=== PATIENT | male | born 1935 | race African-American/Black ===

== ENCOUNTER 2017-08-26 13:09 | Emergency (ER) | payer MEDICARE ==
[~2017-08-26] VITALS: Ht 177.8 cm; Wt 98.0 kg
[2017-08-26] MEDS ORDERED: CLONIDINE 0.2MG TABLET PO ONE (16:00)
[2017-08-26 16:40] LABS: BASOPHILS % 0.1 % (0.0-2.0); CHLORIDE 110 mEq/L (98-107); HEMATOCRIT. 31.3 % (42.0-52.0); HEMOGLOBIN. 10.8 g/dL (14.0-18.0); LYMPHOCYTES % 42.9 % (20.0-50.0); MEAN CORPUSCULAR HEMOGLOBIN 31.3 pg (28.0-32.0); MEAN CORPUSCULAR VOLUME 90.7 fL (80.0-94.0); MEAN PLATELET VOLUME 7.7 fl (7.4-10.4); MONOCYTES % 8.1 % (2.0-8.0); NEUTROPHILS % 41.9 % (40.0-76.0); PLATELET 124 x1000/uL (130-400); PROTHROMBIN TIME 10.6 sec (9.4-11.6); RED BLOOD CELL COUNT 3.45 mill/uL (4.7-6.1); RED CELL DISTRIBUTION WIDTH 14.1 % (11.6-14.6)
[2017-08-26 17:22] LABS: CLARITY URINE CLOUDY (CLEAR); COLOR URINE ORANGE (YELLOW); KETONES URINE NEGATIVE (NEGATIVE); LEUKOCYTE ESTERASE URINE TRACE (NEGATIVE); NITRITE URINE NEGATIVE (NEGATIVE); OCCULT BLOOD URINE 3+ (NEGATIVE); PROTEIN URINE 1+ (NEGATIVE); SPECIFIC GRAVITY URINE 1.012 (1.005-1.030); UROBILINOGEN URINE 0.2 E.U./dL (0.2-1.0)
[2017-08-26] MEDS ORDERED: LEVOFLOXACIN 500MG TABLET PO ONE (19:15)
[2017-08-26 19:23] VITALS: BP 145/77
== END 2017-08-26 19:29 | disposition home or self-care (01) ==
LOC: ER 14:22
DX: R31.9 Hematuria, unspecified (principal); C79.51 Secondary malignant neoplasm of bone; I10 Essential (primary) hypertension; E11.9 Type 2 diabetes mellitus without complications; Z85.46 Personal history of malignant neoplasm of prostate
CPT/HCPCS: 36415; 74176; 80053; 81003; 85025; 85610; 86850; 86900; 87086; 99285

== ENCOUNTER 2018-02-25 08:11 | Emergency (ER) | payer MEDICARE, MEDICAID ==
[~2018-02-25] VITALS: Ht 177.8 cm; Wt 99.0 kg
[2018-02-25] MEDS ORDERED: KETOROLAC 30MG/ML VIAL IV STA (09:28)
[2018-02-25 10:29] LABS: BASOPHILS % 0.2 % (0.0-2.0); EOSINOPHILS % 5.7 % (0.0-5.0); HEMATOCRIT. 35.3 % (42.0-52.0); LYMPHOCYTES % 35.8 % (20.0-50.0); MEAN CORPUSCULAR HEMOGLOBIN 30.8 pg (28.0-32.0); MEAN CORPUSCULAR VOLUME 90.7 fL (80.0-94.0); MEAN PLATELET VOLUME 8.4 fl (7.4-10.4); MONOCYTES % 6.8 % (2.0-8.0); NEUTROPHILS % 51.5 % (40.0-76.0); PLATELET 160 x1000/uL (130-400); RED BLOOD CELL COUNT 3.89 mill/uL (4.7-6.1)
[2018-02-25 10:32] LABS: CHLORIDE 106 mEq/L (98-107)
[2018-02-25 10:33] LABS: PROTHROMBIN TIME 10.4 sec (9.1-11.1)
[2018-02-25 11:07] LABS: COLOR URINE YELLOW (YELLOW); KETONES URINE NEGATIVE (NEGATIVE); LEUKOCYTE ESTERASE URINE TRACE (NEGATIVE); NITRITE URINE NEGATIVE (NEGATIVE); OCCULT BLOOD URINE 3+ (NEGATIVE); PROTEIN URINE NEGATIVE (NEGATIVE); SPECIFIC GRAVITY URINE 1.014 (1.005-1.030); UROBILINOGEN URINE 0.2 E.U./dL (0.2-1.0)
[2018-02-25 11:08] LABS: CLARITY URINE SL HAZY (CLEAR)
[2018-02-25] MEDS ORDERED: MORPHINE SULFATE 10 MG/ML CPJ IV ONE (11:45)
[2018-02-25] MEDS ORDERED: ONDANSETRON HCL 4MG/2ML INJ IV ONE (11:45)
[2018-02-25] MEDS ORDERED: LEVOFLOXACIN 250MG TABLET PO ONE (13:00)
[2018-02-25 13:46] VITALS: BP 160/81
== END 2018-02-25 13:48 | disposition home or self-care (01) ==
LOC: ER 13:13
DX: N28.1 Cyst of kidney, acquired (principal); N39.0 Urinary tract infection, site not specified; I10 Essential (primary) hypertension; C61 Malignant neoplasm of prostate; C79.51 Secondary malignant neoplasm of bone
CPT/HCPCS: 36415; 74176; 80053; 81003; 83690; 85025; 85610; 96374; 96375; 99284; J1885; J2270; J2405

== ENCOUNTER 2018-04-17 08:00 | Emergency (ER) | payer MEDICARE, MEDICAID ==
[~2018-04-17] VITALS: Ht 172.7 cm; Wt 99.0 kg
[2018-04-17 11:05] LABS: CLARITY URINE CLEAR (CLEAR); COLOR URINE YELLOW (YELLOW); KETONES URINE NEGATIVE (NEGATIVE); LEUKOCYTE ESTERASE URINE NEGATIVE (NEGATIVE); NITRITE URINE NEGATIVE (NEGATIVE); OCCULT BLOOD URINE 2+ (NEGATIVE); PROTEIN URINE NEGATIVE (NEGATIVE); SPECIFIC GRAVITY URINE 1.011 (1.005-1.030); UROBILINOGEN URINE 0.2 E.U./dL (0.2-1.0)
[2018-04-17] MEDS ORDERED: KETOROLAC 60MG/2ML VIAL IM STA (11:26)
[2018-04-17] MEDS ORDERED: ONDANSETRON HCL 4MG/2ML INJ IV STA (11:26)
[2018-04-17] MEDS ORDERED: MORPHINE SULFATE 4 MG/ML CPJ (NOT FOR IM USE) IV STA (11:26)
[2018-04-17] MEDS ORDERED: SODIUM CHLORIDE 0.9% 1,000 ML IV ONE (11:26)
[2018-04-17 12:03] LABS: BASOPHILS % 0.2 % (0.0-2.0); EOSINOPHILS % 0.3 % (0.0-5.0); HEMATOCRIT. 34.3 % (42.0-52.0); HEMOGLOBIN. 11.7 g/dL (14.0-18.0); LYMPHOCYTES % 16.2 % (20.0-50.0); MEAN CORPUSCULAR HEMOGLOBIN 30.6 pg (28.0-32.0); MEAN CORPUSCULAR VOLUME 89.7 fL (80.0-94.0); MEAN PLATELET VOLUME 8.2 fl (7.4-10.4); MONOCYTES % 4.2 % (2.0-8.0); NEUTROPHILS % 79.1 % (40.0-76.0); PLATELET 199 x1000/uL (130-400); RED BLOOD CELL COUNT 3.82 mill/uL (4.7-6.1); RED CELL DISTRIBUTION WIDTH 14.3 % (11.6-14.6)
[2018-04-17 12:09] LABS: INR 1.1; PROTHROMBIN TIME 10.9 sec (9.1-11.1)
[2018-04-17 12:10] LABS: CHLORIDE 105 mEq/L (98-107)
[2018-04-17] MEDS ORDERED: OXYCODONE HCL/ACETAMINOPHEN 5/325MG TABLET PO ONE (12:45)
[2018-04-17 12:47] VITALS: BP 145/85
== END 2018-04-17 13:44 | disposition home or self-care (01) ==
LOC: ER 08:00
DX: C61 Malignant neoplasm of prostate (principal); C79.51 Secondary malignant neoplasm of bone; G89.3 Neoplasm related pain (acute) (chronic); N17.9 Acute kidney failure, unspecified; E86.0 Dehydration; N18.9 Chronic kidney disease, unspecified
CPT/HCPCS: 36415; 71045; 74176; 80053; 81003; 83690; 83880; 84484; 85025; 85610; 86850; 86900; 86901; 93005; 96361; 96372; 96374; 96375; 99284; J1885; J2270; J2405; J7030

== ENCOUNTER 2018-09-28 13:58 | Inpatient (IN) | payer MEDICARE, MEDICAID ==
[~2018-09-28] VITALS: Ht 177.8 cm; Wt 98.0 kg
[2018-09-28 14:58] LABS: BASOPHILS % 0.8 % (0.0-2.0); HEMATOCRIT. 29.2 % (42.0-52.0); HEMOGLOBIN. 10.2 g/dL (14.0-18.0); LYMPHOCYTES % 26.1 % (20.0-50.0); MEAN CORPUSCULAR HEMOGLOBIN 32.2 pg (28.0-32.0); MEAN CORPUSCULAR VOLUME 91.8 fL (80.0-94.0); MEAN PLATELET VOLUME 8.3 fl (7.4-10.4); MONOCYTES % 6.4 % (2.0-8.0); NEUTROPHILS % 61.7 % (40.0-76.0); PLATELET 153 x1000/uL (130-400); RED BLOOD CELL COUNT 3.18 mill/uL (4.7-6.1)
[2018-09-28 15:05] LABS: CHLORIDE 107 mEq/L (98-107)
[2018-09-28 15:09] LABS: ETHANOL BLOOD < 10 mg/dL
[2018-09-28 15:13] LABS: LDL CHOLESTEROL 128 mg/dL (5-100)
[2018-09-28 15:22] LABS: PROTHROMBIN TIME 10.6 sec (9.6-11.0)
[2018-09-28] MEDS ORDERED: ASPIRIN 325MG TABLET PO ONE (16:30)
[2018-09-28 17:27] LABS: CLARITY URINE CLOUDY (CLEAR); COLOR URINE YELLOW (YELLOW); KETONES URINE NEGATIVE (NEGATIVE); LEUKOCYTE ESTERASE URINE 2+ (NEGATIVE); NITRITE URINE POSITIVE (NEGATIVE); OCCULT BLOOD URINE NEGATIVE (NEGATIVE); PROTEIN URINE NEGATIVE (NEGATIVE); UROBILINOGEN URINE 0.2 E.U./dL (0.2-1.0)
[2018-09-28 17:47] LABS: *AMPHETAMINES SCREEN URINE NEGATIVE (NEGATIVE); *BARBITURATES SCREEN URINE NEGATIVE (NEGATIVE)
[2018-09-28 17:49] LABS: *BENZODIAZEPINES SCREEN URINE NEGATIVE (NEGATIVE); *COCAINE SCREEN URINE NEGATIVE (NEGATIVE); CANNABINOID URINE SCREEN NEGATIVE (NEGATIVE); METHADONE URINE SCREEN NEGATIVE (NEGATIVE); OPIATES URINE SCREEN NEGATIVE (NEGATIVE)
[2018-09-28 17:50] LABS: PHENCYCLIDINE URINE SCREEN NEGATIVE (NEGATIVE)
[2018-09-28] MEDS ORDERED: ONDANSETRON HCL 4MG/2ML INJ IV PRN (19:30)
[2018-09-28] MEDS ORDERED: DOCUSATE SODIUM 100MG CAPSULE PO PRN (19:30)
[2018-09-28] MEDS ORDERED: ACETAMINOPHEN 325MG TABLET PO PRN (19:30)
[2018-09-28] MEDS ORDERED: GUAIFENESIN 200MG/10ML SUGAR FREE UDC PO PRN (19:30)
[2018-09-28] MEDS ORDERED: MAGNESIUM/ALUMINUM HYDROXIDE/SIMETHICONE 30ML UDC PO PRN (19:30)
[2018-09-28] MEDS ORDERED: LEVOFLOXACIN 500MG PREMIX 100 ML IV SCH ×2 (19:30→20:15)
[2018-09-28 21:37] VITALS: BP_SYST 138; BP_SYST 142; BP_DIAS 67; BP_DIAS 75
[2018-09-29] VITALS: BP 142/66
[2018-09-29 08:00] VITALS: BP 178/77
[2018-09-29] MEDS: AMLODIPINE 10MG TABLET PO SCH (08:08)
[2018-09-29] MEDS: ASPIRIN 81MG EC TABLET PO SCH (08:09)
[2018-09-29 09:00] VITALS: BP 172/59
[2018-09-29] MEDS: CLONIDINE 0.1MG TABLET PO PRN (09:10)
[2018-09-29 09:33] LABS: BASOPHILS % 0.3 % (0.0-2.0); EOSINOPHILS % 5.4 % (0.0-5.0); HEMATOCRIT. 27.2 % (42.0-52.0); HEMOGLOBIN. 9.4 g/dL (14.0-18.0); LYMPHOCYTES % 29.5 % (20.0-50.0); MEAN CORPUSCULAR HEMOGLOBIN 31.4 pg (28.0-32.0); MEAN CORPUSCULAR VOLUME 90.9 fL (80.0-94.0); MEAN PLATELET VOLUME 8.7 fl (7.4-10.4); NEUTROPHILS % 55.8 % (40.0-76.0); PLATELET 140 x1000/uL (130-400); RED CELL DISTRIBUTION WIDTH 16.5 % (11.6-14.6)
[2018-09-29 10:00] LABS: CHLORIDE 110 mEq/L (98-107)
[2018-09-29 12:00] VITALS: BP 127/60
[2018-09-29 13:51] LABS: T4 FREE 1.06 ng/dL (0.76-1.46)
[2018-09-29] MEDS: HYDRALAZINE HCL 25MG TABLET PO SCH ×2 (14:00→21:11)
[2018-09-29 14:15] LABS: FOLIC ACID (FOLATE) SERUM 12.9 ng/mL (>5.38)
[2018-09-29] MEDS: FOLIC ACID 1MG TABLET PO SCH (15:03)
[2018-09-29] MEDS: OMEPRAZOLE 20MG CAPSULE EXTENDED RELEASE PO SCH (15:04)
[2018-09-29 16:00] VITALS: BP 110/48
[2018-09-29 20:00] VITALS: BP 155/68
[2018-09-29] MEDS: ATORVASTATIN CALCIUM 20MG TABLET PO SCH (21:11)
[2018-09-29] MEDS: LEVOFLOXACIN 500MG PREMIX 100 ML IV SCH (21:38)
[2018-09-30] VITALS: BP 140/80
[2018-09-30 04:00] VITALS: BP 130/69
[2018-09-30] MEDS: OMEPRAZOLE 20MG CAPSULE EXTENDED RELEASE PO SCH (06:14)
[2018-09-30] MEDS: HYDRALAZINE HCL 25MG TABLET PO SCH ×3 (06:15→22:19)
[2018-09-30 08:00] VITALS: BP 148/69
[2018-09-30] MEDS: FOLIC ACID 1MG TABLET PO SCH (08:40)
[2018-09-30] MEDS: ASPIRIN 81MG EC TABLET PO SCH (08:40)
[2018-09-30] MEDS: AMLODIPINE 10MG TABLET PO SCH (08:41)
[2018-09-30 12:00] VITALS: BP 157/68
[2018-09-30 13:07] LABS: BASOPHILS % 0.9 % (0.0-2.0); EOSINOPHILS % 3.7 % (0.0-5.0); HEMATOCRIT. 27.7 % (42.0-52.0); HEMOGLOBIN. 9.7 g/dL (14.0-18.0); LYMPHOCYTES % 27.7 % (20.0-50.0); MEAN CORPUSCULAR HEMOGLOBIN 31.9 pg (28.0-32.0); MEAN CORPUSCULAR VOLUME 91.1 fL (80.0-94.0); MEAN PLATELET VOLUME 8.1 fl (7.4-10.4); MONOCYTES % 9.8 % (2.0-8.0); NEUTROPHILS % 57.9 % (40.0-76.0); PLATELET 128 x1000/uL (130-400); RED BLOOD CELL COUNT 3.05 mill/uL (4.7-6.1); RED CELL DISTRIBUTION WIDTH 16.6 % (11.6-14.6)
[2018-09-30 13:14] LABS: CHLORIDE 106 mEq/L (98-107)
[2018-09-30] MEDS: HYDROCODONE/ACETAMINOPHEN 5/325MG TABLET PO PRN ×2 (14:14→19:56)
[2018-09-30 16:00] VITALS: BP 161/68
[2018-09-30] MEDS: CLONIDINE 0.1MG TABLET PO PRN (19:11)
[2018-09-30 20:00] VITALS: BP 163/66
[2018-09-30] MEDS: LEVOFLOXACIN 500MG PREMIX 100 ML IV SCH (21:21)
[2018-09-30] MEDS: ATORVASTATIN CALCIUM 20MG TABLET PO SCH (21:21)
[2018-10-01] VITALS: BP 133/61
[2018-10-01 04:00] VITALS: BP 156/66
[2018-10-01] MEDS: HYDROCODONE/ACETAMINOPHEN 5/325MG TABLET PO PRN (04:51)
[2018-10-01] MEDS: HYDRALAZINE HCL 25MG TABLET PO SCH ×3 (05:48→20:46)
[2018-10-01] MEDS: OMEPRAZOLE 20MG CAPSULE EXTENDED RELEASE PO SCH (07:07)
[2018-10-01 08:00] VITALS: BP 129/77
[2018-10-01] MEDS: ASPIRIN 81MG EC TABLET PO SCH (09:16)
[2018-10-01] MEDS: FOLIC ACID 1MG TABLET PO SCH (09:16)
[2018-10-01] MEDS: AMLODIPINE 10MG TABLET PO SCH (09:16)
[2018-10-01] MEDS: HYDROCODONE/ACETAMINOPHEN 10/325MG TABLET PO PRN (10:30)
[2018-10-01 12:00] VITALS: BP 151/67
[2018-10-01] MEDS: LEVOFLOXACIN 500MG TABLET PO SCH (12:06)
[2018-10-01] MEDS ORDERED: ENOXAPARIN 40MG/0.4ML SYR SUBCUT SCH (15:30)
[2018-10-01] MEDS: ACETAMINOPHEN 500MG TABLET PO SCH ×2 (15:36→23:54)
[2018-10-01] MEDS: LIDOCAINE 5% PATCH TOP SCH (15:46)
[2018-10-01 16:00] VITALS: BP 114/63
[2018-10-01 20:00] VITALS: BP 121/55
[2018-10-01] MEDS: ATORVASTATIN CALCIUM 20MG TABLET PO SCH (20:46)
[2018-10-01] MEDS: ENOXAPARIN 30MG/0.3ML SYR SUBCUT SCH (20:47)
[2018-10-02 00:02] VITALS: BP 115/66
[2018-10-02 04:00] VITALS: BP 146/66
[2018-10-02] MEDS: HYDRALAZINE HCL 25MG TABLET PO SCH ×3 (05:38→21:27)
[2018-10-02] MEDS: OMEPRAZOLE 20MG CAPSULE EXTENDED RELEASE PO SCH (05:38)
[2018-10-02] MEDS: ACETAMINOPHEN 500MG TABLET PO SCH ×2 (05:38→11:59)
[2018-10-02 08:00] VITALS: BP 135/50
[2018-10-02] MEDS: AMLODIPINE 10MG TABLET PO SCH (08:28)
[2018-10-02] MEDS: ASPIRIN 81MG EC TABLET PO SCH (08:28)
[2018-10-02] MEDS: ENOXAPARIN 30MG/0.3ML SYR SUBCUT SCH ×2 (08:28→20:39)
[2018-10-02] MEDS: FOLIC ACID 1MG TABLET PO SCH (08:28)
[2018-10-02] MEDS: LIDOCAINE 5% PATCH TOP SCH (08:30)
[2018-10-02] MEDS: HYDROCODONE/ACETAMINOPHEN 10/325MG TABLET PO PRN ×2 (10:22→21:29)
[2018-10-02] MEDS ORDERED: KETOROLAC 15MG/ML VIAL IV PRN (10:30)
[2018-10-02] MEDS: LEVOFLOXACIN 500MG TABLET PO SCH (11:58)
[2018-10-02 12:00] VITALS: BP 164/48
[2018-10-02] MEDS: DEXAMETHASONE 4MG/ML 1ML VIAL IV SCH (17:24)
[2018-10-02 20:00] VITALS: BP 128/56
[2018-10-02] MEDS: ATORVASTATIN CALCIUM 20MG TABLET PO SCH (20:39)
[2018-10-03] VITALS (7 sets, daily range): BP systolic 126–172; BP diastolic 58–79
[2018-10-03] MEDS: DEXAMETHASONE 4MG/ML 1ML VIAL IV SCH ×4 (00:59→17:30)
[2018-10-03] MEDS: HYDRALAZINE HCL 25MG TABLET PO SCH ×2 (05:39→15:41)
[2018-10-03] MEDS: FOLIC ACID 1MG TABLET PO SCH (08:35)
[2018-10-03] MEDS: ENOXAPARIN 30MG/0.3ML SYR SUBCUT SCH (08:35)
[2018-10-03] MEDS: OMEPRAZOLE 20MG CAPSULE EXTENDED RELEASE PO SCH (08:35)
[2018-10-03] MEDS: AMLODIPINE 10MG TABLET PO SCH (08:35)
[2018-10-03] MEDS: ASPIRIN 81MG EC TABLET PO SCH (08:35)
[2018-10-03] MEDS: LIDOCAINE 5% PATCH TOP SCH (08:39)
[2018-10-03] MEDS: LEVOFLOXACIN 500MG TABLET PO SCH (11:27)
[2018-10-03] MEDS ORDERED: CLOPIDOGREL 75MG TABLET PO SCH (12:30)
[2018-10-03 18:52] LABS: BASOPHILS % 0.2 % (0.0-2.0); HEMATOCRIT. 27.7 % (42.0-52.0); HEMOGLOBIN. 9.3 g/dL (14.0-18.0); LYMPHOCYTES % 11.7 % (20.0-50.0); MEAN CORPUSCULAR HEMOGLOBIN 30.9 pg (28.0-32.0); MEAN CORPUSCULAR VOLUME 91.9 fL (80.0-94.0); MEAN PLATELET VOLUME 8.5 fl (7.4-10.4); MONOCYTES % 2.6 % (2.0-8.0); NEUTROPHILS % 85.5 % (40.0-76.0); PLATELET 174 x1000/uL (130-400); RED BLOOD CELL COUNT 3.02 mill/uL (4.7-6.1)
[2018-10-05 10:06] LABS: A/G RATIO 0.9 (0.7-1.7); ALPHA-1-GLOBULIN 0.6 g/dL (0.0-0.4); BETA GLOBULIN 1.2 g/dL (0.7-1.3); GAMMA GLOBULINS 0.7 g/dL (0.4-1.8); GLOBULIN TOTAL 3.5 g/dL (2.2-3.9); M-SPIKE Not Observed g/dL (Not Observed); TOTAL PROTEIN SERUM 6.5 g/dL (6.0-8.5)
== END 2018-10-03 22:20 | DRG 65 ==
LOC: ER 13:58 → 8WST 17:10 → SUPCPDRO 19:23 → ENRESERV 20:42 → UNDODISIN 10-03 17:50
PROVIDERS: ADMIT Hospitalist; ATTEND Hospitalist
DX: I63.9 Cerebral infarction, unspecified (principal); G81.94 Hemiplegia, unspecified affecting left nondominant side; N39.0 Urinary tract infection, site not specified; D64.9 Anemia, unspecified; I11.9 Hypertensive heart disease without heart failure; E78.00 Pure hypercholesterolemia, unspecified; F17.200 Nicotine dependence, unspecified, uncomplicated; L89.159 Pressure ulcer of sacral region, unspecified stage; E78.5 Hyperlipidemia, unspecified; M47.26 Other spondylosis with radiculopathy, lumbar region; M43.16 Spondylolisthesis, lumbar region; M48.061 Spinal stenosis, lumbar region without neurogenic claudication; M48.02 Spinal stenosis, cervical region; E11.9 Type 2 diabetes mellitus without complications; N28.1 Cyst of kidney, acquired; G89.29 Other chronic pain; Z86.73 Personal history of transient ischemic attack (TIA), and cerebral infarction without residual deficits; Z92.21 Personal history of antineoplastic chemotherapy; Z82.49 Family history of ischemic heart disease and other diseases of the circulatory system; Z85.46 Personal history of malignant neoplasm of prostate; Z92.3 Personal history of irradiation; R47.01 Aphasia
CPT/HCPCS: 36415; 70544; 70551; 71045; 72141; 72148; 72170; 73200; 80061; 80305; 80320; 81003; 82607; 82728; 82746; 82962; 83036; 83540; 83550; 83721; 84155; 84165; 84439; 84443; 84481; 84484; 85651; 92610; 93005; 93306; 93880; 96374; 97162; 97166; 97535; 99291; J1100; J1650; J1885; J1956; G0480

== ENCOUNTER 2018-10-03 22:20 | Inpatient (IN) | payer MEDICARE, MEDICAID ==
[~2018-10-03] VITALS: Ht 177.8 cm; Wt 98.4 kg
[2018-10-03 22:00] VITALS: BP 139/62
[2018-10-03 22:30] VITALS: BP 139/62
[2018-10-04] MEDS ORDERED: DOCUSATE SODIUM 100MG CAPSULE PO PRN (00:30)
[2018-10-04] MEDS ORDERED: ACETAMINOPHEN 325MG TABLET PO PRN (00:30)
[2018-10-04] MEDS ORDERED: ONDANSETRON HCL 4MG/2ML INJ IV PRN (00:30)
[2018-10-04] MEDS ORDERED: KETOROLAC 30MG/ML VIAL IV PRN (00:30)
[2018-10-04] MEDS ORDERED: MAGNESIUM/ALUMINUM HYDROXIDE/SIMETHICONE 30ML UDC PO PRN (00:30)
[2018-10-04] MEDS ORDERED: GUAIFENESIN 200MG/10ML SUGAR FREE UDC PO PRN (00:30)
[2018-10-04] MEDS ORDERED: KETOROLAC 15MG/ML VIAL IV PRN (01:15)
[2018-10-04] MEDS ORDERED: NA PHOS,M-B/NA PHOS,DI-BA ENEMA 118ML PR NR (03:15)
[2018-10-04] MEDS: HYDRALAZINE HCL 25MG TABLET PO SCH ×3 (06:52→21:09)
[2018-10-04] MEDS ORDERED: OMEPRAZOLE 20MG CAPSULE EXTENDED RELEASE PO SCH (07:00)
[2018-10-04 07:02] LABS: CHLORIDE 106 mEq/L (98-107)
[2018-10-04 07:07] LABS: BASOPHILS % 0.1 % (0.0-2.0); HEMATOCRIT. 26.4 % (42.0-52.0); HEMOGLOBIN. 9.2 g/dL (14.0-18.0); LYMPHOCYTES % 9.7 % (20.0-50.0); MEAN CORPUSCULAR HEMOGLOBIN 31.7 pg (28.0-32.0); MEAN CORPUSCULAR VOLUME 91.2 fL (80.0-94.0); MEAN PLATELET VOLUME 8.4 fl (7.4-10.4); MONOCYTES % 3.4 % (2.0-8.0); NEUTROPHILS % 86.8 % (40.0-76.0); PLATELET 175 x1000/uL (130-400); RED BLOOD CELL COUNT 2.89 mill/uL (4.7-6.1)
[2018-10-04 07:54] VITALS: BP 149/68
[2018-10-04] MEDS: FOLIC ACID 1MG TABLET PO SCH (08:18)
[2018-10-04] MEDS: ASPIRIN 81MG TABLET PO SCH (08:18)
[2018-10-04] MEDS: CLOPIDOGREL 75MG TABLET PO SCH (08:18)
[2018-10-04] MEDS: AMLODIPINE 10MG TABLET PO SCH (08:19)
[2018-10-04] MEDS: ENOXAPARIN 30MG/0.3ML SYR SUBCUT SCH ×2 (08:19→21:08)
[2018-10-04] MEDS: LIDOCAINE 5% PATCH TOP SCH (08:20)
[2018-10-04] MEDS ORDERED: LEVOFLOXACIN 500MG TABLET PO SCH (11:00)
[2018-10-04] MEDS ORDERED: LEVOFLOXACIN 250MG TABLET PO SCH (17:05)
[2018-10-04 20:00] VITALS: BP 146/61
[2018-10-04] MEDS: ATORVASTATIN CALCIUM 20MG TABLET PO SCH (21:08)
[2018-10-05] MEDS: HYDRALAZINE HCL 25MG TABLET PO SCH ×3 (06:35→21:40)
[2018-10-05 08:01] VITALS: BP 155/68
[2018-10-05] MEDS: FOLIC ACID 1MG TABLET PO SCH (10:25)
[2018-10-05] MEDS: CLOPIDOGREL 75MG TABLET PO SCH (10:25)
[2018-10-05] MEDS: AMLODIPINE 10MG TABLET PO SCH (10:26)
[2018-10-05] MEDS: ASPIRIN 81MG TABLET PO SCH (10:26)
[2018-10-05] MEDS: ENOXAPARIN 30MG/0.3ML SYR SUBCUT SCH ×2 (10:27→21:39)
[2018-10-05] MEDS: LIDOCAINE 5% PATCH TOP SCH (10:28)
[2018-10-05] MEDS: LEVOFLOXACIN 250MG TABLET PO SCH (11:08)
[2018-10-05] MEDS: HYDROCODONE/ACETAMINOPHEN 10/325MG TABLET PO PRN (13:53)
[2018-10-05 20:00] VITALS: BP 166/71
[2018-10-05] MEDS: ATORVASTATIN CALCIUM 20MG TABLET PO SCH (21:39)
[2018-10-06] MEDS: HYDRALAZINE HCL 25MG TABLET PO SCH ×3 (06:22→21:59)
[2018-10-06 07:14] LABS: BASOPHILS % 0.1 % (0.0-2.0); EOSINOPHILS % 0.2 % (0.0-5.0); HEMATOCRIT. 27.9 % (42.0-52.0); HEMOGLOBIN. 9.5 g/dL (14.0-18.0); LYMPHOCYTES % 26.6 % (20.0-50.0); MEAN CORPUSCULAR HEMOGLOBIN 30.7 pg (28.0-32.0); MEAN CORPUSCULAR VOLUME 90.7 fL (80.0-94.0); MEAN PLATELET VOLUME 7.7 fl (7.4-10.4); MONOCYTES % 9.2 % (2.0-8.0); NEUTROPHILS % 63.9 % (40.0-76.0); PLATELET 175 x1000/uL (130-400); RED BLOOD CELL COUNT 3.08 mill/uL (4.7-6.1); RED CELL DISTRIBUTION WIDTH 15.6 % (11.6-14.6)
[2018-10-06 07:40] LABS: CHLORIDE 108 mEq/L (98-107)
[2018-10-06 07:43] VITALS: BP 140/83
[2018-10-06 07:45] LABS: PHOSPHORUS 2.8 mg/dL (2.5-4.9)
[2018-10-06 07:47] LABS: TOTAL IRON BINDING CAPACITY 290 ug/dL (250-450)
[2018-10-06 07:55] LABS: T4 FREE 1.15 ng/dL (0.76-1.46)
[2018-10-06 08:11] LABS: FOLIC ACID (FOLATE) SERUM 17.6 ng/mL (>5.38)
[2018-10-06] MEDS: AMLODIPINE 10MG TABLET PO SCH (08:20)
[2018-10-06] MEDS: CLOPIDOGREL 75MG TABLET PO SCH (08:20)
[2018-10-06] MEDS: FAMOTIDINE 20MG TABLET PO SCH (08:20)
[2018-10-06] MEDS: FOLIC ACID 1MG TABLET PO SCH (08:20)
[2018-10-06] MEDS: ASPIRIN 81MG TABLET PO SCH (08:20)
[2018-10-06] MEDS: ENOXAPARIN 30MG/0.3ML SYR SUBCUT SCH ×2 (08:21→22:00)
[2018-10-06] MEDS: LIDOCAINE 5% PATCH TOP SCH (08:21)
[2018-10-06 10:11] LABS: IMMUNOGLOBULIN A 241 mg/dL (61-437); IMMUNOGLOBULIN G 813 mg/dL (700-1600); IMMUNOGLOBULIN M 70 mg/dL (15-143)
[2018-10-06] MEDS: LEVOFLOXACIN 250MG TABLET PO SCH (11:13)
[2018-10-06] MEDS ORDERED: CYANOCOBALAMIN 1000MCG/ML VIAL IM NR (13:30)
[2018-10-06] MEDS: HYDROCODONE/ACETAMINOPHEN 10/325MG TABLET PO PRN (13:30)
[2018-10-06] MEDS: GABAPENTIN 100MG CAPSULE PO SCH ×2 (13:46→21:58)
[2018-10-06 20:00] VITALS: BP 154/68
[2018-10-06] MEDS: ATORVASTATIN CALCIUM 20MG TABLET PO SCH (21:59)
[2018-10-07 06:20] LABS: BASOPHILS % 0.2 % (0.0-2.0); EOSINOPHILS % 2.5 % (0.0-5.0); HEMATOCRIT. 26.8 % (42.0-52.0); HEMOGLOBIN. 9.3 g/dL (14.0-18.0); LYMPHOCYTES % 35.8 % (20.0-50.0); MEAN CORPUSCULAR HEMOGLOBIN 31.3 pg (28.0-32.0); MEAN CORPUSCULAR VOLUME 90.3 fL (80.0-94.0); MEAN PLATELET VOLUME 7.7 fl (7.4-10.4); MONOCYTES % 10.8 % (2.0-8.0); NEUTROPHILS % 50.7 % (40.0-76.0); PLATELET 174 x1000/uL (130-400); RED BLOOD CELL COUNT 2.97 mill/uL (4.7-6.1); RED CELL DISTRIBUTION WIDTH 15.3 % (11.6-14.6)
[2018-10-07 06:35] LABS: CHLORIDE 107 mEq/L (98-107)
[2018-10-07] MEDS: HYDRALAZINE HCL 25MG TABLET PO SCH ×3 (06:36→21:13)
[2018-10-07] MEDS: GABAPENTIN 100MG CAPSULE PO SCH ×3 (06:36→21:03)
[2018-10-07 08:00] VITALS: BP 170/76
[2018-10-07] MEDS: ENOXAPARIN 30MG/0.3ML SYR SUBCUT SCH ×2 (09:28→21:04)
[2018-10-07] MEDS: LIDOCAINE 5% PATCH TOP SCH (09:30)
[2018-10-07] MEDS: FAMOTIDINE 20MG TABLET PO SCH (09:31)
[2018-10-07] MEDS: AMLODIPINE 10MG TABLET PO SCH (09:31)
[2018-10-07] MEDS: ASPIRIN 81MG TABLET PO SCH (09:31)
[2018-10-07] MEDS: FOLIC ACID 1MG TABLET PO SCH (09:31)
[2018-10-07] MEDS: CLOPIDOGREL 75MG TABLET PO SCH (09:31)
[2018-10-07 20:00] VITALS: BP 160/69
[2018-10-07] MEDS: ATORVASTATIN CALCIUM 20MG TABLET PO SCH (21:03)
[2018-10-08] MEDS: HYDRALAZINE HCL 25MG TABLET PO SCH ×3 (06:18→21:26)
[2018-10-08] MEDS: GABAPENTIN 100MG CAPSULE PO SCH ×3 (06:19→21:26)
[2018-10-08 08:00] VITALS: BP 110/52
[2018-10-08] MEDS: LIDOCAINE 5% PATCH TOP SCH (10:29)
[2018-10-08] MEDS: ENOXAPARIN 30MG/0.3ML SYR SUBCUT SCH ×2 (10:30→21:27)
[2018-10-08] MEDS: ASPIRIN 81MG TABLET PO SCH (10:31)
[2018-10-08] MEDS: HYDROCODONE/ACETAMINOPHEN 10/325MG TABLET PO PRN (10:31)
[2018-10-08] MEDS: FOLIC ACID 1MG TABLET PO SCH (10:31)
[2018-10-08] MEDS: FAMOTIDINE 20MG TABLET PO SCH (10:31)
[2018-10-08] MEDS: AMLODIPINE 10MG TABLET PO SCH (10:32)
[2018-10-08] MEDS: CLOPIDOGREL 75MG TABLET PO SCH (10:32)
[2018-10-08 20:00] VITALS: BP 138/64
[2018-10-08] MEDS: ATORVASTATIN CALCIUM 20MG TABLET PO SCH (21:26)
[2018-10-09] MEDS: GABAPENTIN 100MG CAPSULE PO SCH ×3 (05:38→21:36)
[2018-10-09] MEDS: HYDRALAZINE HCL 25MG TABLET PO SCH ×3 (05:39→21:38)
[2018-10-09] MEDS: CLOPIDOGREL 75MG TABLET PO SCH (08:38)
[2018-10-09] MEDS: FAMOTIDINE 20MG TABLET PO SCH (08:38)
[2018-10-09] MEDS: ASPIRIN 81MG TABLET PO SCH (08:38)
[2018-10-09] MEDS: FOLIC ACID 1MG TABLET PO SCH (08:38)
[2018-10-09] MEDS: AMLODIPINE 10MG TABLET PO SCH (08:39)
[2018-10-09] MEDS: ENOXAPARIN 30MG/0.3ML SYR SUBCUT SCH ×2 (08:39→21:07)
[2018-10-09] MEDS: LIDOCAINE 5% PATCH TOP SCH (08:41)
[2018-10-09 08:54] VITALS: BP 155/74
[2018-10-09 19:06] LABS: 25-HYDROXY VITAMIN D3 20 ng/mL (.)
[2018-10-09 20:00] VITALS: BP 166/65
[2018-10-09] MEDS: ATORVASTATIN CALCIUM 20MG TABLET PO SCH (21:05)
[2018-10-10] MEDS: GABAPENTIN 100MG CAPSULE PO SCH ×3 (05:27→22:13)
[2018-10-10] MEDS: HYDRALAZINE HCL 25MG TABLET PO SCH ×3 (05:27→22:13)
[2018-10-10 07:17] LABS: BASOPHILS % 0.7 % (0.0-2.0); EOSINOPHILS % 3.1 % (0.0-5.0); HEMATOCRIT. 25.8 % (42.0-52.0); HEMOGLOBIN. 8.9 g/dL (14.0-18.0); LYMPHOCYTES % 27.4 % (20.0-50.0); MEAN CORPUSCULAR HEMOGLOBIN 31.3 pg (28.0-32.0); MEAN CORPUSCULAR VOLUME 90.4 fL (80.0-94.0); MONOCYTES % 8.9 % (2.0-8.0); NEUTROPHILS % 59.9 % (40.0-76.0); PLATELET 163 x1000/uL (130-400); RED BLOOD CELL COUNT 2.85 mill/uL (4.7-6.1); RED CELL DISTRIBUTION WIDTH 15.4 % (11.6-14.6)
[2018-10-10 07:37] LABS: CHLORIDE 103 mEq/L (98-107)
[2018-10-10 08:00] VITALS: BP 152/81
[2018-10-10 08:01] LABS: PHOSPHORUS 3.1 mg/dL (2.5-4.9)
[2018-10-10] MEDS: CLOPIDOGREL 75MG TABLET PO SCH (09:42)
[2018-10-10] MEDS: FOLIC ACID 1MG TABLET PO SCH (09:42)
[2018-10-10] MEDS: AMLODIPINE 10MG TABLET PO SCH (09:42)
[2018-10-10] MEDS: FAMOTIDINE 20MG TABLET PO SCH (09:42)
[2018-10-10] MEDS: ASPIRIN 81MG TABLET PO SCH (09:42)
[2018-10-10] MEDS: LIDOCAINE 5% PATCH TOP SCH (09:43)
[2018-10-10] MEDS: ENOXAPARIN 30MG/0.3ML SYR SUBCUT SCH ×2 (09:43→22:14)
[2018-10-10] MEDS ORDERED: ERGOCALCIFEROL 50000UNITS CAPSULE PO SCH (14:00)
[2018-10-10 20:00] VITALS: BP 109/62
[2018-10-10] MEDS: ATORVASTATIN CALCIUM 20MG TABLET PO SCH (22:13)
[2018-10-11] MEDS: GABAPENTIN 100MG CAPSULE PO SCH ×3 (06:24→21:33)
[2018-10-11] MEDS: HYDRALAZINE HCL 25MG TABLET PO SCH ×3 (06:25→21:33)
[2018-10-11 08:00] VITALS: BP 169/72
[2018-10-11] MEDS: ENOXAPARIN 30MG/0.3ML SYR SUBCUT SCH ×2 (09:00→20:36)
[2018-10-11] MEDS: FAMOTIDINE 20MG TABLET PO SCH (09:31)
[2018-10-11] MEDS: AMLODIPINE 10MG TABLET PO SCH (09:32)
[2018-10-11] MEDS: LIDOCAINE 5% PATCH TOP SCH (09:32)
[2018-10-11] MEDS: FOLIC ACID 1MG TABLET PO SCH (09:32)
[2018-10-11] MEDS: ASPIRIN 81MG TABLET PO SCH (09:32)
[2018-10-11] MEDS: CLOPIDOGREL 75MG TABLET PO SCH (09:32)
[2018-10-11] MEDS: HYDROCODONE/ACETAMINOPHEN 10/325MG TABLET PO PRN ×2 (09:51→13:45)
[2018-10-11 20:00] VITALS: BP 167/81
[2018-10-11] MEDS: ATORVASTATIN CALCIUM 20MG TABLET PO SCH (20:36)
[2018-10-11] MEDS: CLONIDINE 0.1MG TABLET PO PRN (20:37)
[2018-10-11 21:33] VITALS: BP 163/70
[2018-10-11 23:11] VITALS: BP 135/74
[2018-10-12] MEDS: GABAPENTIN 100MG CAPSULE PO SCH ×3 (06:04→21:22)
[2018-10-12] MEDS: HYDRALAZINE HCL 25MG TABLET PO SCH ×3 (06:04→21:22)
[2018-10-12 08:00] VITALS: BP 175/62
[2018-10-12] MEDS: HYDROCODONE/ACETAMINOPHEN 10/325MG TABLET PO PRN ×2 (08:20→15:32)
[2018-10-12] MEDS: CLOPIDOGREL 75MG TABLET PO SCH (08:20)
[2018-10-12] MEDS: FOLIC ACID 1MG TABLET PO SCH (08:21)
[2018-10-12] MEDS: ASPIRIN 81MG TABLET PO SCH (08:21)
[2018-10-12] MEDS: FAMOTIDINE 20MG TABLET PO SCH (08:21)
[2018-10-12] MEDS: LIDOCAINE 5% PATCH TOP SCH (08:21)
[2018-10-12] MEDS: AMLODIPINE 10MG TABLET PO SCH (08:21)
[2018-10-12] MEDS: ENOXAPARIN 30MG/0.3ML SYR SUBCUT SCH ×2 (08:22→21:21)
[2018-10-12 15:31] VITALS: BP 144/59
[2018-10-12 16:52] LABS: BASOPHILS % 0.6 % (0.0-2.0); EOSINOPHILS % 1.6 % (0.0-5.0); HEMATOCRIT. 26.5 % (42.0-52.0); HEMOGLOBIN. 9.1 g/dL (14.0-18.0); LYMPHOCYTES % 21.4 % (20.0-50.0); MEAN CORPUSCULAR HEMOGLOBIN 31.3 pg (28.0-32.0); MEAN CORPUSCULAR VOLUME 90.9 fL (80.0-94.0); MEAN PLATELET VOLUME 8.3 fl (7.4-10.4); MONOCYTES % 10.1 % (2.0-8.0); NEUTROPHILS % 66.3 % (40.0-76.0); PLATELET 197 x1000/uL (130-400); RED BLOOD CELL COUNT 2.92 mill/uL (4.7-6.1); RED CELL DISTRIBUTION WIDTH 15.3 % (11.6-14.6)
[2018-10-12 20:00] VITALS: BP 132/60
[2018-10-12] MEDS: ATORVASTATIN CALCIUM 20MG TABLET PO SCH (21:22)
[2018-10-13] MEDS: GABAPENTIN 100MG CAPSULE PO SCH ×3 (06:14→21:57)
[2018-10-13] MEDS: HYDRALAZINE HCL 25MG TABLET PO SCH ×3 (06:19→21:57)
[2018-10-13 08:00] VITALS: BP 154/57
[2018-10-13] MEDS ORDERED: SODIUM CHLORIDE 0.45% 1,000 ML IV SCH (08:15)
[2018-10-13] MEDS: ASPIRIN 81MG TABLET PO SCH (08:52)
[2018-10-13] MEDS: FAMOTIDINE 20MG TABLET PO SCH (08:52)
[2018-10-13] MEDS: FOLIC ACID 1MG TABLET PO SCH (08:52)
[2018-10-13] MEDS: AMLODIPINE 10MG TABLET PO SCH (08:52)
[2018-10-13] MEDS: CLOPIDOGREL 75MG TABLET PO SCH (08:52)
[2018-10-13] MEDS: ENOXAPARIN 30MG/0.3ML SYR SUBCUT SCH ×2 (08:53→20:46)
[2018-10-13] MEDS: HYDROCODONE/ACETAMINOPHEN 10/325MG TABLET PO PRN ×2 (08:53→21:56)
[2018-10-13] MEDS: LIDOCAINE 5% PATCH TOP SCH (08:54)
[2018-10-13] MEDS ORDERED: BISACODYL 5MG TABLET PO PRN (11:15)
[2018-10-13 13:31] LABS: CLARITY URINE TURBID (CLEAR); COLOR URINE YELLOW (YELLOW); KETONES URINE NEGATIVE (NEGATIVE); LEUKOCYTE ESTERASE URINE 3+ (NEGATIVE); NITRITE URINE NEGATIVE (NEGATIVE); OCCULT BLOOD URINE TRACE (NEGATIVE); PROTEIN URINE NEGATIVE (NEGATIVE); UROBILINOGEN URINE 0.2 E.U./dL (0.2-1.0)
[2018-10-13] MEDS ORDERED: LEVOFLOXACIN 500MG TABLET PO SCH (15:00)
[2018-10-13 19:42] LABS: CREATINE KINASE 51 IU/L (39-308)
[2018-10-13 20:00] VITALS: BP 167/66
[2018-10-13] MEDS: ATORVASTATIN CALCIUM 20MG TABLET PO SCH (20:46)
[2018-10-13] MEDS: CLONIDINE 0.1MG TABLET PO PRN (20:46)
[2018-10-14] MEDS: GABAPENTIN 100MG CAPSULE PO SCH ×2 (05:12→14:39)
[2018-10-14] MEDS: HYDRALAZINE HCL 25MG TABLET PO SCH ×2 (05:12→14:39)
[2018-10-14] MEDS: HYDROCODONE/ACETAMINOPHEN 10/325MG TABLET PO PRN (05:13)
[2018-10-14 09:20] VITALS: BP 166/64
[2018-10-14] MEDS: CLOPIDOGREL 75MG TABLET PO SCH (09:35)
[2018-10-14] MEDS: ASPIRIN 81MG TABLET PO SCH (09:35)
[2018-10-14] MEDS: ENOXAPARIN 30MG/0.3ML SYR SUBCUT SCH (09:35)
[2018-10-14] MEDS: FOLIC ACID 1MG TABLET PO SCH (09:36)
[2018-10-14] MEDS: FAMOTIDINE 20MG TABLET PO SCH (09:36)
[2018-10-14] MEDS: AMLODIPINE 10MG TABLET PO SCH (09:36)
[2018-10-14] MEDS: LIDOCAINE 5% PATCH TOP SCH (09:43)
[2018-10-14] MEDS ORDERED: LEVOFLOXACIN 250MG TABLET PO SCH (11:00)
[2018-10-14 12:12] VITALS: BP 157/68
== END 2018-10-14 16:30 | disposition home health service (06) | DRG 56 ==
PROVIDERS: ADMIT Physical Medicine & Rehabilitation Spinal Cord Injury Medicine; ATTEND Hospitalist
DX: I69.354 Hemiplegia and hemiparesis following cerebral infarction affecting left non-dominant side (principal); I63.9 Cerebral infarction, unspecified; C79.51 Secondary malignant neoplasm of bone; N39.0 Urinary tract infection, site not specified; E46 Unspecified protein-calorie malnutrition; N17.9 Acute kidney failure, unspecified; R47.01 Aphasia; M48.02 Spinal stenosis, cervical region; N18.9 Chronic kidney disease, unspecified; I12.9 Hypertensive chronic kidney disease with stage 1 through stage 4 chronic kidney disease, or unspecified chronic kidney disease; E78.00 Pure hypercholesterolemia, unspecified; M48.061 Spinal stenosis, lumbar region without neurogenic claudication; C61 Malignant neoplasm of prostate; R26.9 Unspecified abnormalities of gait and mobility; M79.609 Pain in unspecified limb; D63.1 Anemia in chronic kidney disease; E78.5 Hyperlipidemia, unspecified; M25.512 Pain in left shoulder; M25.511 Pain in right shoulder; R47.81 Slurred speech; D72.819 Decreased white blood cell count, unspecified; Z87.891 Personal history of nicotine dependence; Z82.49 Family history of ischemic heart disease and other diseases of the circulatory system; G83.14 Monoplegia of lower limb affecting left nondominant side; R47.1 Dysarthria and anarthria; R53.81 Other malaise; L89.159 Pressure ulcer of sacral region, unspecified stage; J44.9 Chronic obstructive pulmonary disease, unspecified; Z68.31 Body mass index [BMI] 31.0-31.9, adult; D64.9 Anemia, unspecified; E55.9 Vitamin D deficiency, unspecified; F03.90 Unspecified dementia, unspecified severity, without behavioral disturbance, psychotic disturbance, mood disturbance, and anxiety; Z85.46 Personal history of malignant neoplasm of prostate
CPT/HCPCS: 36415; 76770; 80048; 81003; 82140; 82306; 82550; 82607; 82728; 82746; 82784; 83540; 83550; 83735; 84100; 84134; 84153; 84439; 84443; 84481; 86334; 87077; 87186; 92523; 92610; 93970; 97110; 97112; 97116; 97150; 97162; 97166; 97530; 97535; J1650; G0103

== ENCOUNTER 2019-09-10 14:14 | Inpatient (IN) | payer MEDICARE, MEDICAID ==
[~2019-09-10] VITALS: Ht 175.3 cm; Wt 79.9 kg
[2019-09-10] VITALS (9 sets, daily range): BP systolic 87–120; BP diastolic 57–74
[2019-09-10] MEDS ORDERED: MIDAZOLAM HCL 2 MG/2 ML VIAL ONE (14:35)
[2019-09-10] MEDS ORDERED: SODIUM CHLORIDE 0.9% 1,000 ML IV ONE ×2 (14:37→15:48)
[2019-09-10] MEDS ORDERED: MIDAZOLAM HCL 2 MG/2 ML VIAL IV ONE (14:45)
[2019-09-10] MEDS ORDERED: LEVETIRACETAM 500MG PREMIX 100 ML IV ONE (14:45)
[2019-09-10] MEDS ORDERED: VANCOMYCIN 1 G PREMIX 200 ML IV SCH (14:45)
[2019-09-10] MEDS ORDERED: PIPERACILLIN/TAZOBACTAM 3.375GM/50ML PREMIX IV NR (14:45)
[2019-09-10 15:20] LABS: HEMATOCRIT. 33.2 % (42.0-52.0); HEMOGLOBIN. 10.5 g/dL (14.0-18.0); MEAN CORPUSCULAR HEMOGLOBIN 28.8 pg (28.0-32.0); MEAN CORPUSCULAR VOLUME 90.7 fL (80.0-94.0); MEAN PLATELET VOLUME 9.4 fl (7.4-10.4); PLATELET 118 x1000/uL (130-400); RED BLOOD CELL COUNT 3.66 mill/uL (4.7-6.1); RED CELL DISTRIBUTION WIDTH 21.3 % (11.6-14.6)
[2019-09-10 15:26] LABS: CHLORIDE 89 mEq/L (98-107)
[2019-09-10 15:29] LABS: INR 1.1; PROTHROMBIN TIME 11.2 sec (9.6-11.0)
[2019-09-10 15:33] LABS: ETHANOL BLOOD < 10 mg/dL
[2019-09-10 15:37] LABS: CREATINE KINASE 166 IU/L (39-308)
[2019-09-10 15:45] LABS: CARBAMAZEPINE < 0.5 ug/mL (4-12); PHENOBARBITAL < 2.1 ug/mL (15.0-40.0); VALPROIC ACID < 3.0 ug/mL (50-100)
[2019-09-10] MEDS ORDERED: CALCIUM CHLORIDE 1,000 MG in DEXT 5% WATER 100 ML IV ONE (16:00)
[2019-09-10] MEDS ORDERED: INSULIN REGULAR (DRIP) 100 UNITS in SODIUM CHLORIDE 0.9% 99 ML IV SCH (16:00)
[2019-09-10 16:17] LABS: PLATELET ESTIMATE DECREASED
[2019-09-10 16:31] LABS: CLARITY URINE CLOUDY (CLEAR); COLOR URINE YELLOW (YELLOW); KETONES URINE TRACE (NEGATIVE); LEUKOCYTE ESTERASE URINE 2+ (NEGATIVE); NITRITE URINE NEGATIVE (NEGATIVE); OCCULT BLOOD URINE 3+ (NEGATIVE); PROTEIN URINE NEGATIVE (NEGATIVE); SPECIFIC GRAVITY URINE 1.025 (1.005-1.030); UROBILINOGEN URINE 0.2 E.U./dL (0.2-1.0)
[2019-09-10 16:42] LABS: *AMPHETAMINES SCREEN URINE NEGATIVE (NEGATIVE); *BARBITURATES SCREEN URINE NEGATIVE (NEGATIVE); *BENZODIAZEPINES SCREEN URINE NEGATIVE (NEGATIVE); *COCAINE SCREEN URINE NEGATIVE (NEGATIVE); CANNABINOID URINE SCREEN NEGATIVE (NEGATIVE); METHADONE URINE SCREEN NEGATIVE (NEGATIVE); OPIATES URINE SCREEN NEGATIVE (NEGATIVE); PHENCYCLIDINE URINE SCREEN NEGATIVE (NEGATIVE)
[2019-09-10] MEDS ORDERED: PROPOFOL 10MG/ML 100ML 100 ML IV SCH (19:15)
[2019-09-10] MEDS ORDERED: LORAZEPAM 2MG/ML CPJ IV PRN (19:30)
[2019-09-10] MEDS ORDERED: ACETAMINOPHEN 325MG TABLET PO PRN (19:30)
[2019-09-10] MEDS ORDERED: ONDANSETRON HCL 4MG/2ML INJ IV PRN (19:30)
[2019-09-10] MEDS ORDERED: DEXTROSE 50% WATER 50ML SYRINGE IV PRN ×3 (19:30→23:00)
[2019-09-10] MEDS ORDERED: TRAZODONE HCL 50MG TABLET PO PRN (19:30)
[2019-09-10] MEDS ORDERED: SODIUM POLYSTYRENE SULFONATE 15 G/60 ML BOT PO NR (20:30)
[2019-09-10] MEDS ORDERED: BLOOD SUGAR DIAGNOSTIC STRIP TEST SCH (21:00)
[2019-09-10] MEDS ORDERED: INSULIN GLARGINE UD 100 UNITS/ML SYR SUBCUT SCH (22:00)
[2019-09-10] MEDS: LACTULOSE 20G/30ML UDC PO SCH (22:22)
[2019-09-10] MEDS ORDERED: SODIUM CHLORIDE 0.9% 1,000 ML IV SCH (22:27)
[2019-09-10] MEDS ORDERED: LEVETIRACETAM 500MG PREMIX 100 ML IV NR (22:45)
[2019-09-10] MEDS ORDERED: LEVETIRACETAM 500MG PREMIX 100 ML IV SCH (23:00)
[2019-09-10] MEDS: BLOOD SUGAR DIAGNOSTIC STRIP TEST SCH ×2 (23:11→23:54)
[2019-09-10 23:31] LABS: BG BASE EXCESS -11.7 mmol/L (-2.0-2.0); BG CARBOXYHEMOGLOBIN 0.3 % (0.5-1.5); BG DEOXYHEMOGLOBIN 0.4 % (0.0-5.0); BG FRACTION INSPIRED OXYGEN 90; BG HCO3 ACT 11.7 mmol/L (22.0-26.0); BG METHEMOGLOBIN 0.1 % (0.0-1.5); BG OXYGEN SATURATION 99.6 % (92.0-98.5); BG OXYHEMOGLOBIN 99.2 % (94.0-97.0); BG PCO2 20.8 mmHg (35.0-45.0); BG PH 7.367 (7.350-7.450); BG PIP 18 cmH2O; BG PO2 503.8 mmHg (75.0-100.0); BG SAMPLE SITE RIGHT BRACHIAL; BG TIDAL VOLUME(mL) 550 mL; BG TOTAL HEMOGLOBIN 11.3 g/dL (12.0-18.0); BG VENT MODE VENT - A/C; BG VENT RATE 16 set
[2019-09-10] MEDS ORDERED: FENTANYL CITRATE/PF 1,000 MCG in SODIUM CHLORIDE 0.9% 80 ML IV PRN (23:45)
[2019-09-10] MEDS ORDERED: MIDAZOLAM HCL 100 MG in DEXT 5% WATER 80 ML IV PRN (23:45)
[2019-09-10] MEDS: INSULIN REGULAR (DRIP) 100 UNITS in SODIUM CHLORIDE 0.9% 100 ML IV SCH (23:53)
[2019-09-11] VITALS (23 sets, daily range): BP systolic 76–147; BP diastolic 36–70
[2019-09-11] MEDS: BLOOD SUGAR DIAGNOSTIC STRIP TEST SCH ×5 (01:12→05:22)
[2019-09-11] MEDS: INSULIN REGULAR (DRIP) 100 UNITS in SODIUM CHLORIDE 0.9% 100 ML IV SCH (04:10)
[2019-09-11] MEDS ORDERED: SODIUM CHLORIDE 0.9% 1,000 ML IV ONE (05:30)
[2019-09-11] MEDS: LACTULOSE 20G/30ML UDC PO SCH (05:31)
[2019-09-11 05:41] LABS: HEMATOCRIT. 30.5 % (42.0-52.0); HEMOGLOBIN. 10.1 g/dL (14.0-18.0); MEAN CORPUSCULAR HEMOGLOBIN 28.5 pg (28.0-32.0); MEAN CORPUSCULAR VOLUME 86.3 fL (80.0-94.0); MEAN PLATELET VOLUME 9.6 fl (7.4-10.4); PLATELET 103 x1000/uL (130-400); RED BLOOD CELL COUNT 3.53 mill/uL (4.7-6.1); RED CELL DISTRIBUTION WIDTH 21.8 % (11.6-14.6)
[2019-09-11 05:46] LABS: CHLORIDE 101 mEq/L (98-107)
[2019-09-11] MEDS ORDERED: EPINEPHRINE 0.1MG/ML (1:10,000) 10ML SYR ONE (05:55)
[2019-09-11] MEDS ORDERED: SODIUM BICARBONATE 8.4% MEQ/ML 50ML VIAL IV ONE (05:55)
[2019-09-11] MEDS ORDERED: CALCIUM CHLORIDE 1GM/10ML SYR IV ONE (05:55)
[2019-09-11] MEDS ORDERED: LEVETIRACETAM 500MG PREMIX 100 ML IV SCH (09:00)
[2019-09-11 12:03] LABS: PLATELET ESTIMATE DECREASED
== END 2019-09-11 08:00 | disposition expired | DRG 871 ==
LOC: ER 14:14 → EDBEDREQSVC 18:24 → EDBEDREQ 18:24 → ENRESERV 20:47 → MICUNO 21:47
PROVIDERS: ADMIT Internal Medicine; ATTEND Internal Medicine
PROC: 05HY33Z Insertion of Infusion Device into Upper Vein, Percutaneous Approach (ICD-10-PCS; principal; 2019-09-10)
PROC: B54MZZA Ultrasonography of Right Upper Extremity Veins, Guidance (ICD-10-PCS; 2019-09-10)
PROC: 0BH17EZ Insertion of Endotracheal Airway into Trachea, Via Natural or Artificial Opening (ICD-10-PCS; 2019-09-10)
PROC: 5A1935Z Respiratory Ventilation, Less than 24 Consecutive Hours (ICD-10-PCS; 2019-09-10)
DX: A41.9 Sepsis, unspecified organism (principal); I21.4 Non-ST elevation (NSTEMI) myocardial infarction; J96.01 Acute respiratory failure with hypoxia; E87.1 Hypo-osmolality and hyponatremia; C78.00 Secondary malignant neoplasm of unspecified lung; C79.51 Secondary malignant neoplasm of bone; E44.0 Moderate protein-calorie malnutrition; E72.20 Disorder of urea cycle metabolism, unspecified; E87.2 Acidosis; N39.0 Urinary tract infection, site not specified; C61 Malignant neoplasm of prostate; E11.65 Type 2 diabetes mellitus with hyperglycemia; E78.00 Pure hypercholesterolemia, unspecified; E83.51 Hypocalcemia; E87.5 Hyperkalemia; E87.8 Other disorders of electrolyte and fluid balance, not elsewhere classified; G40.909 Epilepsy, unspecified, not intractable, without status epilepticus; I10 Essential (primary) hypertension; Z86.73 Personal history of transient ischemic attack (TIA), and cerebral infarction without residual deficits; Z85.46 Personal history of malignant neoplasm of prostate; I95.9 Hypotension, unspecified; F17.200 Nicotine dependence, unspecified, uncomplicated; Z68.26 Body mass index [BMI] 26.0-26.9, adult
CPT/HCPCS: 36415; 36600; 71045; 80053; 80156; 80165; 80184; 80185; 80305; 80320; 81003; 82140; 82375; 82550; 82805; 82962; 83036; 83605; 83735; 83880; 84443; 84484; 85025; 86850; 86900; 93005; 94002; 96365; 99285; J1815; J1953; J2250; J2543; J2704; J3370; J3490; J7030; J7050; J7060; G0480